=== PATIENT | male | born 1950 ===

== ENCOUNTER 2021-11-24 19:14 | Emergency (ER) | payer MEDICARE ==
[~2021-11-24] VITALS: Ht 172.7 cm; Wt 70.8 kg
[~2021-11-24 19:14] MED LIST: DEXILANT; TAMS0.4C34 PO
--- NOTE | 2021-11-24 19:33 | NUR ---
[place] in ED - 11/24/21 at 1943 by BLADE pt in room 5, pt c/o vomiting and feels weak.
--- NOTE | 2021-11-24 19:33 | NUR ---
pt in room 3 states he has nausea and is weak.
[2021-11-24] MEDS ORDERED: FAMO-132 PO (19:44)
[2021-11-24 20:17] LABS: *BILIRUBIN,URIN NEGATIVE (NEGATIVE); *BLOOD, URINE NEGATIVE (NEGATIVE); *CLARITY,URINE CLEAR (CLEAR); *COLOR,URINE YELLOW (YELLOW); *KETONES,URINE NEGATIVE (NEGATIVE); *UROBILINOGEN,URINE 0.2 E.U./dl (NORMAL); LEUKOCYTE ESTERASE ,URINE NEGATIVE (NEGATIVE); NITRITE, URINE NEGATIVE (NEGATIVE); UGLUCOSE NEGATIVE (NEGATIVE)
[2021-11-24 20:28] LABS: HEMATOCRIT 39.9 % (36.7-47.1); MEAN CORPUSCULAR HEMOGLOBIN 29.2 uug (23.8-33.4); MEAN CORPUSCULAR VOLUME 86.2 fL (73.0-96.2); PLATELET COUNT (AUTO) 253 K/uL (152-348)
[2021-11-24 20:33] LABS: CARBON DIOXIDE 29 mmol/L (21-32); CHLORIDE 103 mmol/L (98-107); CREATININE 1.1 mg/dL (0.6-1.3); GLUCOSE 123 mg/dL (74-106); POTASSIUM 3.4 mmol/L (3.5-5.1); UREA NITROGEN, BLOOD 25 mg/dL (7-18)
[2021-11-24 20:42] LABS: ALANINE AMINOTRANSFERASE 26 U/L (16-63); ALKALINE PHOSPHATASE 82 U/L (50-136); ASPARTATE AMINOTRANSFERASE 25 U/L (15-37); BILIRUBIN,DIRECT 0.1 mg/dL (0.0-0.2); BILIRUBIN,TOTAL 0.2 mg/dL (0.2-1.0); LIPASE 97 U/L (73-393); TOTAL PROTEIN, SERUM 6.5 g/dL (6.4-8.2)
--- NOTE | 2021-11-24 20:59 | NUR ---
Dr. Meek in room speaking with pt and pt's .
--- NOTE | 2021-11-24 22:26 | NUR ---
call to Dr. Andre pt's pulmonogist, call given to Dr. Meek to speak with this doctor.
[2021-11-24] MEDS ORDERED: DOXYCYCLINE HYCLATE 100 MG TABLET PO ONE (22:30)
[2021-11-24] MEDS ORDERED: DOXYCYCLINE HYCLATE 100 MG TABLET ONE (22:30)
[2021-11-24] MEDS ORDERED: DOXY-226 PO (22:37)
[2021-11-24] MEDS ORDERED: ONDA4TAB11 PO (22:37)
--- NOTE | 2021-11-24 22:42 | NUR ---
Patient discharged to home in stable condition. Written and verbal after care instructions given. Patient verbalizes understanding of instructions. Stressed follow up or return to ER for worsening s/s.
[2021-11-24 22:45] VITALS: BP 140/80
== END 2021-11-24 22:44 | disposition home or self-care (01) ==
LOC: ER 19:22
DX: J18.9 Pneumonia, unspecified organism (principal); Z20.822 Contact with and (suspected) exposure to COVID-19; R11.2 Nausea with vomiting, unspecified; E87.6 Hypokalemia; I44.0 Atrioventricular block, first degree; N40.0 Benign prostatic hyperplasia without lower urinary tract symptoms; R03.0 Elevated blood-pressure reading, without diagnosis of hypertension
CPT/HCPCS: 36415; 71045; 83690; 84484; 85025; 87086; 87400; 93005; A4663

== ENCOUNTER 2022-04-06 21:08 | Emergency (ER) | payer MEDICARE ==
[~2022-04-06] VITALS: Ht 167.6 cm; Wt 81.6 kg
[~2022-04-06 21:08] MED LIST changes: -DEXILANT; +DOXY-226 PO; +FAMO-132 PO; +ONDA4TAB11 PO; -TAMS0.4C34 PO
--- NOTE | 2022-04-06 21:45 | NUR ---
Dr. Meek at bedside for MSE.
--- NOTE | 2022-04-06 22:17 | NUR ---
Xray at bedside.
[2022-04-06 22:27] LABS: CARBON DIOXIDE 29 mmol/L (21-32); CHLORIDE 102 mmol/L (98-107); CREATININE 1.4 mg/dL (0.6-1.3); GLUCOSE 109 mg/dL (74-106); HEMATOCRIT 40.5 % (36.7-47.1); MEAN CORPUSCULAR HEMOGLOBIN 27.9 uug (23.8-33.4); MEAN CORPUSCULAR VOLUME 82.7 fL (73.0-96.2); PLATELET COUNT (AUTO) 263 K/uL (152-348); POTASSIUM 4.5 mmol/L (3.5-5.1); UREA NITROGEN, BLOOD 23 mg/dL (7-18)
[2022-04-06 22:32] LABS: ALANINE AMINOTRANSFERASE 16 U/L (16-63); ALKALINE PHOSPHATASE 73 U/L (50-136); ASPARTATE AMINOTRANSFERASE 12 U/L (15-37); BILIRUBIN,DIRECT 0.1 mg/dL (0.0-0.2); BILIRUBIN,TOTAL 0.3 mg/dL (0.2-1.0); TOTAL PROTEIN, SERUM 6.9 g/dL (6.4-8.2)
[2022-04-06 23:00] LABS: *BILIRUBIN,URIN NEGATIVE (NEGATIVE); *CLARITY,URINE CLEAR (CLEAR); *COLOR,URINE YELLOW (YELLOW); *KETONES,URINE NEGATIVE (NEGATIVE); *UROBILINOGEN,URINE 0.2 E.U./dl (NORMAL); LEUKOCYTE ESTERASE ,URINE NEGATIVE (NEGATIVE); NITRITE, URINE NEGATIVE (NEGATIVE); UGLUCOSE NEGATIVE (NEGATIVE)
[2022-04-06 23:03] LABS: *BLOOD, URINE TRACE (NEGATIVE); BACTERIA,URINE NONE SEEN /HPF (NONE SEEN); SQUAMOUS EPITHELIAL CELL,UR NONE SEEN /HPF (NONE SEEN); TRICHOMONAS,URINE NONE SEEN /HPF (NONE SEEN); WBC,URINE NONE SEEN /HPF (0-3); YEAST,URINE NONE SEEN /HPF (NONE SEEN)
--- NOTE | 2022-04-06 23:36 | NUR ---
Patient discharged to home in stable condition. Written and verbal after care instructions given. Patient verbalizes understanding of instructions. Stressed follow up or return to ER for worsening s/s. Patient out of ER with steady gait, no acute signs of distress, VSS, all belongings taken, provided with copies of lab, xray results, and CD of images.
[2022-04-06 23:37] VITALS: BP 148/80
== END 2022-04-06 23:38 | disposition home or self-care (01) ==
LOC: ER 21:11
DX: I10 Essential (primary) hypertension (principal); F17.210 Nicotine dependence, cigarettes, uncomplicated; N28.9 Disorder of kidney and ureter, unspecified; R19.5 Other fecal abnormalities; R00.1 Bradycardia, unspecified; R93.89 Abnormal findings on diagnostic imaging of other specified body structures
CPT/HCPCS: 36415; 71045; 71046; 85025; 93005; A4663